=== PATIENT | female | born 1990 | race African-American/Black ===

== ENCOUNTER 2021-09-16 10:44 | Emergency (ER) | payer MEDICAID ==
[~2021-09-16] VITALS: Ht 172.7 cm; Wt 88.5 kg
[2021-09-16 13:04] VITALS: BP 124/78
[2021-09-16] MEDS ORDERED: PRED20TA2 PO (13:27)
[2021-09-16] MEDS ORDERED: ACET-1158 PO (13:27)
[2021-09-16] MEDS ORDERED: AMOX-277 PO (13:27)
[2021-09-16] MEDS ORDERED: methylPREDNISolone SOD SUCC 125 MG/2 ML VL IM ONE (13:30)
[2021-09-16] MEDS ORDERED: cefTRIAXone SOD 1,000 MG VL IM ONE (13:30)
[2021-09-16] MEDS ORDERED: LIDOCAINE 1% HCL (LOCAL ANESTH.) INJ 20ML MDV ONE (13:39)
== END 2021-09-16 13:58 | disposition home or self-care (01) ==
LOC: ER 10:44
DX: H66.92 Otitis media, unspecified, left ear (principal); J02.9 Acute pharyngitis, unspecified; Z20.822 Contact with and (suspected) exposure to COVID-19
CPT/HCPCS: 36415; 87070; 87426; 87804; 87880; 96372; 99284; J0696; J2001; J2930